=== PATIENT | female | born 1980 | race African-American/Black ===

== ENCOUNTER 2016-12-31 19:07 | Emergency (ER) | payer OTHER ==
[~2016-12-31] VITALS: Ht 165.1 cm; Wt 100.7 kg
[2016-12-31 19:26] LABS: URINE BILIRUBIN NEGATIVE (Negative); URINE BLOOD TRACE (Negative); URINE COLOR YELLOW; URINE GLUCOSE-RANDOM* NEGATIVE (Negative); URINE KETONES NEGATIVE (Negative); URINE LEUKOCYTES-REFLEX TRACE (Negative); URINE PROTEIN (DIPSTICK) NEGATIVE (Negative); URINE SPECIFIC GRAVITY >= 1.030 (1.003-1.035); URINE UROBILINOGEN 0.2 E.U./dl (0.2-1.0)
[2016-12-31] MEDS ORDERED: DIFLUCAN200 MG PO (20:33)
[2016-12-31 21:28] VITALS: BP 130/88
[2017-01-02 17:11] LABS: CHLAMYDIA TRACHOMATIS-PCR Negative (Negative); NEISSERIA GONORRHEA-PCR Negative (Negative)
== END 2016-12-31 21:29 | disposition home or self-care (01) ==
LOC: ER 19:07
PROVIDERS: Physician Assistant
DX: N72 Inflammatory disease of cervix uteri (principal); B37.3 Candidiasis of vulva and vagina; I10 Essential (primary) hypertension; F10.99 Alcohol use, unspecified with unspecified alcohol-induced disorder; Z98.890 Other specified postprocedural states

== ENCOUNTER 2017-01-25 08:11 | Emergency (ER) | payer OTHER ==
[~2017-01-25] VITALS: Ht 165.1 cm; Wt 99.8 kg
[~2017-01-25 08:11] MED LIST: DIFLUCAN200 MG PO
[2017-01-25 08:57] LABS: URINE BILIRUBIN NEGATIVE (Negative); URINE BLOOD NEGATIVE (Negative); URINE COLOR YELLOW; URINE GLUCOSE-RANDOM* NEGATIVE (Negative); URINE KETONES NEGATIVE (Negative); URINE LEUKOCYTES-REFLEX NEGATIVE (Negative); URINE PROTEIN (DIPSTICK) NEGATIVE (Negative); URINE UROBILINOGEN 0.2 E.U./dl (0.2-1.0)
[2017-01-25] MEDS ORDERED: DIFLUCAN200 MG PO (09:24)
[2017-01-25 09:35] VITALS: BP 118/76
[2017-01-28 22:06] LABS: CHLAMYDIA TRACHOMATIS-PCR Negative (Negative); NEISSERIA GONORRHEA-PCR Negative (Negative)
== END 2017-01-25 09:21 | disposition home or self-care (01) ==
LOC: ER 08:11
PROVIDERS: Physician Assistant
DX: N72 Inflammatory disease of cervix uteri (principal); I10 Essential (primary) hypertension; F10.99 Alcohol use, unspecified with unspecified alcohol-induced disorder; Z98.890 Other specified postprocedural states

== ENCOUNTER 2017-08-03 19:05 | Emergency (ER) | payer OTHER ==
[~2017-08-03] VITALS: Ht 165.1 cm; Wt 99.8 kg
[2017-08-03 19:43] LABS: URINE BILIRUBIN NEGATIVE (Negative); URINE BLOOD NEGATIVE (Negative); URINE CLARITY CLEAR; URINE COLOR YELLOW; URINE GLUCOSE-RANDOM* NEGATIVE (Negative); URINE KETONES NEGATIVE (Negative); URINE LEUKOCYTES-REFLEX NEGATIVE (Negative); URINE NITRITE-REFLEX NEGATIVE (Negative); URINE PROTEIN (DIPSTICK) NEGATIVE (Negative); URINE SPECIFIC GRAVITY 1.015 (1.005-1.035); URINE UROBILINOGEN 0.2 E.U./dl (0.2-1.0)
== END 2017-08-03 21:08 | disposition home or self-care (01) ==
LOC: ER 19:05
PROVIDERS: Emergency Medicine
DX: N89.8 Other specified noninflammatory disorders of vagina (principal); I10 Essential (primary) hypertension